=== PATIENT | male | born 1970 | race Caucasian/White ===

== ENCOUNTER 2023-04-28 08:07 | Outpatient (OUT) | payer OTHER, SELFPAY ==
[2023-04-28 08:40] LABS: Basophils Percent Auto 0.7 % (0.2-2.0); Eosinophils Absolute Auto 0.3 10^3/uL (0.0-0.7); Eosinophils Percent Auto 5.2 % (0.9-7.0); Hematocrit 47.2 % (42.0-54.0); Hemoglobin 15.5 g/dL (14.0-18.0); Immature Granulocytes Abs Auto 0.03 10^3/uL (0.00-0.03); Immature Granulocytes Pct Auto 0.5 % (0.0-0.5); Lymphocytes Absolute Auto 1.4 10^3/uL (1.2-3.8); Mean Corpuscular HGB Conc 32.8 g/dL (29.9-35.2); Mean Corpuscular Hemoglobin 30.7 pg (25.9-34.0); Mean Corpuscular Volume 93.5 fL (80.0-94.0); Monocytes Absolute Auto 0.6 10^3/uL (0.3-0.8); Monocytes Percent Auto 11.4 % (1.7-12.0); Neutrophils Absolute Auto 3.1 10^3/uL (1.4-6.5); Neutrophils Percent Auto 56.2 % (43.0-75.0); Platelet Count 203 10^3/uL (150-450); Red Blood Count 5.05 10^6/uL (4.70-6.10); Red Cell Distribution Width 12.8 % (11.0-15.0); White Blood Count 5.5 10^3/uL (4.0-11.0)
[2023-04-28 09:16] LABS: Alanine Aminotransferase 133 U/L (16-63); Albumin Globulin Ratio 1.1; Albumin Level 3.9 g/dL (3.4-5.0); Alkaline Phosphatase 56 U/L (46-116); Anion Gap 14.1; Aspartate Amino Transferase 68 U/L (15-37); BUN Creatinine Ratio 9.8; Bilirubin Total 0.8 mg/dL (0.2-1.0); Calcium 8.7 mg/dL (8.5-10.1); Chloride 102 mmol/L (98-107); Chol HDL Ratio 3.2; Cholesterol 186 mg/dL (<=200); Estimated GFR (African America >60 (>=60); Estimated GFR (Non-African Ame >60 (>=60); Globulin 3.7 g/dL; Glucose 82 mg/dL (74-106); HDL Cholesterol 58 mg/dL (40-60); Potassium 4.1 mmol/L (3.5-5.1); Sodium 139 mmol/L (136-145); Thyroid Stimulating Hormone 4.533 uIU/mL (0.358-3.740); Total Protein 7.6 g/dL (6.4-8.2); Triglycerides 75 mg/dL (<=150)
[2023-04-28 09:23] LABS: Prostate Specific Antigen Scrn 0.25 ng/mL (<=4.00)
[2023-04-29 04:07] LABS: Vitamin B12 638 pg/mL (232-1245)
== END 2023-04-28 08:08 | disposition home or self-care (01) ==
LOC: LAB 08:11
PROVIDERS: PCP Internal Medicine; Visit Provider Internal Medicine
DX: Z00.00 Encounter for general adult medical examination without abnormal findings (principal)
CPT/HCPCS: 36415; 80053; 80061; 82607; 84443; 85025; G0103

== ENCOUNTER 2023-07-02 07:48 | Outpatient (OUT) | payer OTHER, SELFPAY ==
--- OUTSIDE RECORDS SUMMARY | 2023-07-02 08:12 | XMS_ITS | CCD ---
Author Organization [facility] Care Team Providers Care Senior Marketing Coordinator Name Role Phone DO Kevin Peterson Primary Care Provider [phone] DO Vinay Urbina Attending Provider [phone] JOSE, DR HOLDEN Admitting Unavailable JOSE, DR HOLDEN Attending Unavailable JOSE, DR HOLDEN Primary Care Unavailable JOSE, DR HOLDEN Attending Unavailable JOSE, DR HOLDEN Consulting Unavailable JOSE, DR HOLDEN Primary Care Unavailable JOSE, DR HOLDEN Admitting Unavailable Kevin Peterson Unavailable Medications Current Medications Medication Drug Class(es) Dates Sig (Normalized) Sig (Original) Acetaminophen / oxyCODONE (1 source) Opioid Agonist Start: 11-19-2021 Percocet 5-325MG Percocet( 5-325MG Oral 1 every six hours, as needed ) Active -Hx Entry Oral every six hours, as needed for 0 Nov, Not-Taking 200 actuat albuterol 0.09 mg/actuat dry powder inhaler (3 sources) beta2-Adrenergic Agonist Start: 11-24-2021 take 1 puff(s) by inhalation every four hours as needed ProAir RespiClick 108 (90 Base) MCG/ACT 1 puff as needed Inhalation every 4 hrs for 30 days Nov, Active Start: 07-05-2021 take 1 puff(s) by in halation every six hours Albuterol Sulfate Active 2 PUFF INHALATION Q6H July 05, 2021 8:48am Start: 05-22-2021 take 1 puff(s) by in halation every six hours as needed Albuterol Sulfate HFA 108 (90 Base) MCG/ACT 1 puff as needed Inhalation every 6 hours as needed for 30 days May, Active ciprofloxacin 500 mg oral tablet (1 source) Quinolone Antimicrobial Start: 11-19-2021 Ciprofloxacin HCl 500MG Ciprofloxacin HCl( 500MG Oral 1 two times daily ) Active -Hx Entry Oral two times daily for 0 Nov, Not-Taking minocycline 100 mg oral capsule (2 sources) Tetracycline-class Drug Start: 05-22-2021 take 100 mg by mouth once daily Minocycline Active 100 MG PO Daily July 05, 2021 8:48am phentermine hydrochloride 37.5 mg oral tablet (1 source) Sympathomimetic Amine Anorectic Start: 07-05-2021 take 37.5 mg by mouth once daily Phentermine Active 37.5 MG PO Daily July 05, 2021 8:48am predniSONE 10 mg oral tablet (1 source) Start: 11-19-2021 Prednisone 10 MG PredniSONE( 10MG Oral as directed ) Active -Hx Entry Oral as directed for 0 Nov, Not-Taking tadalafil 20 mg oral tablet (1 source) Phosphodiesterase 5 Inhibitor Start: 01-07-2023 take 1 tablet by mouth once daily as needed Tadalafil 20 MG 1 tablet as needed Orally Once a day as needed for ED for 30 days Dec, Active Problems Active Problems Problem Classification Problem Date Documented Date Episodic/Chronic Asthma (1 source) Mild intermittent asthma; Translations: [Mild intermittent asthma, uncomplicated] Chronic Chronic obstructive pulmonary disease and bronchiectasis (1 source) Mucopurulent chronic bronchitis; Translations: [Mucopurulent chronic bronchitis] Chronic Other connective tissue disease (1 source) Plantar fascial fibromatosis Episodic Other inflammatory condition of skin (1 source) Rosacea; Translations: [Rosacea, unspecified] Chronic Other inflammatory condition of skin (1 source) Rosacea, unspecified Chronic Other male genital disorders (1 source) Erectile dysfunction co-occurrent and due to arterial insufficiency; Translations: [Erectile dysfunction due to arterial insufficiency] Chronic Other male genital disorders (1 source) Erectile dysfunction due to arterial insufficiency Chronic Other nervous system disorders (1 source) Meralgia paresthetica; Translations: [Meralgia paresthetica, left lower limb] Chronic Other nervous system disorders (1 source) Bilateral carpal tunnel syndrome; Translations: [Carpal tunnel syndrome, bilateral upper limbs] Chronic Other nervous system disorders (1 source) Meralgia paresthetica, left lower limb Chronic Other nervous system disorders (1 source) Carpal tunnel syndrome, bilateral upper limbs Chronic Other nutritional; endocrine; and metabolic disorders (1 source) Obesity caused by energy imbalance; Translations: [Other obesity due to excess calories] Chronic Other nutritional; endocrine; and metabolic disorders (1 source) Body mass index 30+ - obesity; Translations: [Body mass index (BMI) 38.0-38.9, adult] Chronic Other nutritional; endocrine; and metabolic disorders (1 source) Other obesity due to excess calories Chronic Other nutritional; endocrine; and metabolic disorders (1 source) Body mass index (BMI) 38.0-38.9, adult Chronic Other screening for suspected conditions (not mental disorders or infectious disease) (5 sources) Patient encounter status; Translations: [Encounter for screening for malignant neoplasm of colon] Onset: 06-06-2021 07-05-2021 Episodic Past or Other Problems Problem Classification Problem Date Documented Da te Episodic/Chronic Unclassified (1 source) Elevated transaminase level; Translations: [Elevated transaminase level] Results Test Name Value Interpretation Reference Range Facility COVID-19 Antigenon 2 COVID-19 Antigen Healthcare Worker?: N Reference Range: Negative Negative results, from patients with symptom onset beyond five days, should be treated as presumptive and confirmation with a molecular assay, if necessary, for patient management, may be performed. Negative results do not rule out COVID-19 and should not be used as the sole basis for treatment or patient management decisions, including infection control decisions. Negative results should be considered in the context of a patient's recent exposures, history and the presence of clinical signs and symptoms consistent with COVID-19. The [facility] SARS Antigen ROD does not differentiate between SARS-CoV and SARS-CoV-2. This test was developed and its performance characteristic determined by [facility] and validated at [facility]. This test has not been FDA cleared or approved. This test has been authorized by FDA under an Emergency Use Authorization (EUA). This test has been validated in accordance with the FDA's Guidance Document (Policy for Diagnostics Testing in Laboratories Certified to Perform High Complexity Testing under CLIA prior to Emergency Use Authorization for Coronavirus Disease-2019 during the Public Health Emergency) issued on May 19, 2019. This test is only authorized for the duration of time the declaration that circumstances exist justifying the authorization of the emergency use of in vitro diagnostic tests for detection of SARS-CoV-2 virus and/or diagnosis of COVID-19 infection under section 564(b)(1) of the Act, 21 U.S.C. 360bbb-3(b)(1), unless the authorization is terminated or revoked sooner. SARS-CoV+SARS-CoV-2 (COVID-19) Ag [Presence] in Respiratory specimen by Rapid immunoassay Negative for SARS Antigen by ROD PERFORMED BY: [place] [address] PATHOLOGIST CAD ENGINEER SAI DAVID M.D. Normal [facility] Comment on above: Performed By: #### C OVID-19 PRESTON, SOFIANEG #### [facility] [address] [place] [address] COVID-19 SOFIAOrdered By: Claudio Urbina on 07-03-2021 SARS-CoV+SARS-CoV-2 (COVID-19) Ag IA.rapid Ql (Resp) Negative Negative [facility] Comment on above: This is a duplicate [facility] SARS Antigen (ROD) result to be used for statistical tracking purpose only. No Panel InformationOrdered By: Vinay Urbina on 07-03-2021 SARS Antigen (LFIA) [facility] Ag Negativeon 07-04-19 22 [facility] Ag Negative Negative Normal Negative [facility] Comment on above: Result Comment: This is a duplicate [facility] SARS Antigen (ROD) result to be used for statistical tracking purpose only. PERFORMED BY: [place] [address] PATHOLOGIST CAD ENGINEER SAI DAVID M.D. Performed By: #### C OVID-19 PRESTON, SOFIANEG #### [facility] [address] [place], [place] [id number] [facility] CBC AUTO DIFFon 06-05-2021 BASO # 0.0 103/ul Normal 0.0-0.1 [facility] Comment on above: Performed By: #### C BC #### [facility] [address] [address] [address] Fabio Ureña Basophils/100 WBC (Bld) 0.6 % Normal 0.2-2.0 [facility] Comment on above: Performed By: #### C BC #### [facility] [address] [place] [address] Dr. Fabio Ureña EO # 0.3 103/ul Normal 0.0-0.7 [facility] Comment on above: Performed By: #### C BC #### [facility] [address] [place] [address] Dr. Fabio Ureña Eosinophils/100 WBC (Bld) 5.6 % Normal 0.9-7.0 [facility] Comment on above: Performed By: #### C BC #### [facility] [address] [place] [address] Dr. Fabio Ureña Erythrocyte distribution width (RBC) [Ratio] 13.2 % Normal 11.0-15.0 [facility] Comment on above: Performed By: #### C BC #### [facility] [address] [place] [address] Dr. Fabio Ureña Hematocrit (Bld) [Volume fraction] 47.3 % Normal 42.0-54.0 [facility] Comment on above: Performed By: #### C BC #### [facility] [address] [place] [address] Dr. Fabio Ureña Hemoglobin (Bld) [Mass/Vol] 15.5 g/dL Normal 14.0-18.0 [facility] Comment on above: Performed By: #### C BC #### [facility] [address] [place] [address] Dr. Fabio Ureña IG # 0.02 10e3/ul Normal 0.00-0.03 [facility] Comment on above: Performed By: #### C BC #### [facility] [address] [place] [address] Dr. Fabio Ureña IG % 0.4 % Normal 0.0-0.5 [facility] Comment on above: Performed By: #### C BC #### [facility] [address] [place] [address] Dr. Fabio Ureña LYMPH # 1.4 103/ul Normal 1.2-3.8 [facility] Comment on above: Performed By: #### C BC #### [facility] [address] [place] [address] Dr. Fabio Ureña Lymphocytes/100 WBC (Bld) 28.8 % Normal 20.5-60.0 [facility] Comment on above: Performed By: #### C BC #### [facility] [address] [place] [address] Dr. Fabio Ureña MANUAL DIFF REQ NO Normal [facility] Comment on above: Performed By: #### C BC #### [facility] [address] [place] [address] Dr. Fabio Ureña MCH (RBC) [Entitic mass] 30.2 pg Normal 25.9-34.0 [facility] Comment on above: Performed By: #### C BC #### [facility] [address] [place] [address] Dr. Fabio Ureña MCHC (RBC) [Mass/Vol] 32.8 g/dL Normal 29.9-35.2 [facility] Comment on above: Performed By: #### C BC #### [facility] [address] [place] [address] Dr. Fabio Ureña MCV (RBC) [Entitic vol] 92.2 fL Normal 80.0-94.0 [facility] Comment on above: Performed By: #### C BC #### [facility] [address] [place] [address] Dr. Fabio Ureña MONO # 0.6 103/ul Normal 0.3-0.8 [facility] Comment on above: Performed By: #### C BC #### [facility] [address] [place] [address] Dr. Fabio Ureña Monocytes/100 WBC (Bld) 12.8 % Critically high 1.7-12. 0 [facility] Comment on above: Performed By: #### C BC #### [facility] [address] [place] [address] Dr. Fabio Ureña NEUT # 2.6 103/ul Normal 1.4-6.5 [facility] Comment on above: Performed By: #### C BC #### [facility] [address] [place] [address] Dr. Fabio Ureña Neutrophils/100 WBC (Bld) 51.8 % Normal 43.0-75.0 [facility] Comment on above: Performed By: #### C BC #### [facility] [address] [place] [address] Dr. Fabio Ureña Platelet mean volume (Bld) [Entitic vol] 10.7 fL Normal 9.5-13.5 [facility] Comment on above: Performed By: #### C BC #### [facility] [address] [place] [address] Dr. Fabio Ureña PLT 216 103/ul Normal 150-450 [facility] Comment on above: Performed By: #### C BC #### [facility] [address] [place] [address] Dr. Fabio Ureña RBC 5.13 106/ul Normal 4.70-6.10 [facility] Comment on above: Performed By: #### C BC #### [facility] [address] [place] [address] Dr. Fabio Ureña WBC 5.0 103/ul Normal 4.0-11.0 [facility] Comment on above: Performed By: #### C BC #### [facility] [address] [place] [address] Dr. Fabio Ureña LIPID PROFILEon 06-05-2021 CHOL-HDL RATIO NORM SEE BELOW Normal [facility] Comment on above: Result Comment: 3.3 - 4.4 LOW RISK 4.4 - 7.1 AVERAGE RISK 7.1 - 11.0 MODERATE RISK >11.0 HIGH RISK Performed By: #### C MP, LIPID #### [facility] [address] [place] [address] Dr. Fabio Ureña Cholesterol [Mass/Vol] 169 mg/dL Normal <=[address] [facility] Comment on above: Performed By: #### C MP, LIPID #### [facility] [address] [place] [address] Dr. Fabio Ureña Cholesterol in HDL [Mass/Vol] 44 mg/dL Normal 40-60 [facility] Comment on above: Performed By: #### C MP, LIPID #### [facility] [address] [address] [address] Fabio Ureña Cholesterol in LDL [Mass/Vol] 109.0 mg/dL Normal [facility] Comment on above: Performed By: #### C MP, LIPID #### [facility] [address] [address] [address] Fabio Ureña Cholesterol.total/Noa sterol in HDL [Mass ratio] 3.8 {ratio} Normal [facility] Comment on above: Performed By: #### C MP, LIPID #### [facility] [address] [address] [address] Fabio Ureña HDL NORMAL > or = 60 mg/dl - LOW CARDIOVASCULAR RISK <40 mg/dl - HIGH CARDIOVASCULAR RISK Normal [facility] Comment on above: Performed By: #### C MP, LIPID #### [facility] [address] [place] [address] Dr. Fabio Ureña LDL CALC NORMAL SEE BELOW Normal [facility] Comment on above: Result Comment: <100 mg/dl OPTIMAL 100 - 129 mg/dl NEAR OR ABOVE OPTIMAL 130 - 159 mg/dl BORDERLINE HIGH 160 - 189 mg/dl HIGH >190 mg/dl VERY HIGH Performed By: #### C MP, LIPID #### [facility] [address] [place] [address] Dr. Fabio Ureña Triglyceride [Mass/Vol] 80 mg/dL Normal <=150 T [facility] Comment on above: Performed By: #### C MP, LIPID #### [facility] [address] [address] [address] Fabio Ureña VLDL CALC 16.0 mg/dL Normal [facility] Comment on above: Performed By: #### C MP, LIPID #### [facility] [address] [address] [address] Fabio Ureña PROF 14(COMP METB)on 022 Albumin [Mass/Vol] 4.3 g/dL Normal 3.4-5.0 [facility] Comment on above: Performed By: #### C MP, LIPID #### [facility] [address] [place] [address] Dr. Fabio Ureña Albumin/Globulin [Mass ratio] 1.3 {ratio} Normal [facility] Comment on above: Performed By: #### C MP, LIPID #### [facility] [address] [place] [address] Dr. Fabio Ureña ALP [Catalytic activity/Vol] 66 U/L Normal 46-116 [facility] Comment on above: Performed By: #### C MP, LIPID #### [facility] [address] [address] [address] Fabio Ureña ALT [Catalytic activity/Vol] 79 U/L Critically high 16-63 [facility] Comment on above: Performed By: #### C MP, LIPID #### [facility] [address] [place] [address] Dr. Fabio Ureña Anion gap [Moles/Vol] 13.1 mmol/L Normal [facility] Comment on above: Performed By: #### C MP, LIPID #### [facility] [address] [address] [address] Fabio Ureña AST [Catalytic activity/Vol] 41 U/L Critically high 15-37 [facility] Comment on above: Performed By: #### C MP, LIPID #### [facility] [address] [place] [address] Dr. Fabio Ureña Bilirubin [Mass/Vol] 0.4 mg/dL Normal 0.2-1.3 [facility] Comment on above: Performed By: #### C MP, LIPID #### [facility] [address] [address] [address] Fabio Ureña Calcium [Mass/Vol] 9.0 mg/dL Normal 8.5-10.1 [facility] Comment on above: Performed By: #### C MP, LIPID #### [facility] [address] [place] [address] Dr. Fabio Ureña Chloride [Moles/Vol] 104 mmol/L Normal 98-107 [facility] Comment on above: Performed By: #### C MP, LIPID #### [facility] [address] [place] [address] Dr. Fabio Ureña CO2 [Moles/Vol] 28.3 mmol/L Normal 22.0-30.0 [facility] Comment on above: Performed By: #### C MP, LIPID #### [facility] [address] [place] [address] Dr. Fabio Ureña Creatinine [Mass/Vol] 0.90 mg/dL Normal 0.66-1.25 [facility] Comment on above: Performed By: #### C MP, LIPID #### [facility] [address] [address] [address] Fabio Ureña EGFR-AF IRAQI >60 Normal >=60 [facility] Comment on above: Performed By: #### C MP, LIPID #### [facility] [address] [place] [address] Dr. Fabio Ureña EGFR-NON AF IRAQI >60 Normal >=60 [facility] Comment on above: Performed By: #### C MP, LIPID #### [facility] [address] [place] [address] Dr. Fabio Ureña Globulin (S) [Mass/Vol] 3.3 g/dL Normal [facility] Comment on above: Performed By: #### C MP, LIPID #### [facility] [address] [place] [address] Dr. Fabio Ureña Glucose [Mass/Vol] 90 mg/dL Normal 74-106 [facility] Comment on above: Performed By: #### C MP, LIPID #### [facility] [address] [place] [address] Dr. Fabio Ureña Potassium [Moles/Vol] 4.4 mmol/L Normal 3.4-5.0 [facility] Comment on above: Performed By: #### C MP, LIPID #### [facility] [address] [place] [address] Dr. Fabio Ureña Protein [Mass/Vol] 7.6 g/dL Normal 6.1-8.2 [facility] Comment on above: Performed By: #### C MP, LIPID #### [facility] [address] [place] [address] Dr. Fabio Ureña Sodium [Moles/Vol] 141 mmol/L Normal 137-145 [facility] Comment on above: Performed By: #### C MP, LIPID #### [facility] [address] [address] [address] Fabio Ureña Urea nitrogen [Mass/Vol] 15.0 mg/dL Normal 7.0-18.0 [facility] Comment on above: Performed By: #### C MP, LIPID #### [facility] [address] [place], [place] [address] Dr. aFbio Ureña Urea nitrogen/Creatinine [Mass ratio] 16.7 mg/mg Normal [facility] Comment on above: Performed By: #### C MP, LIPID #### [facility] [address] [address] [address] Fabio Ureña Vital Signs Date Time Vital Sign Value Performing Clinician Facility 01-07-2023 14:00-0500 Body height 177.8 cm Kevin BeanJockey Other [facility] Other 01-07-2023 14:00-0500 Body mass index (BMI) [Ratio] 38.31 kg/m2 Kevin Ball Other [facility] Other 01-07-2023 14:00-0500 Body weight 121.11 kg Kevin Ball Other [facility] Other 01-07-2023 14:00-0500 Diastolic blood pressure 86 mm[Hg] Kevin Ball Other [facility] Other 01-07-2023 14:00-0500 Respiratory rate 12 /min Kevin Ball Other [facility] Other 01-07-2023 14:00-0500 Systolic blood pressure 124 mm[Hg] Kevin Ball Other [facility] Other 07-05-2021 11:32-0400 Diastolic blood pressure 70 mm[Hg] DO Kevin Ball Work Phone: [facility] 07-05-2021 11:32-0400 Heart rate 70 /min DO Kevin Ball Work Phone: [facility] 07-05-2021 11:32-0400 Respiratory rate 20 /min DO Kevin Ball Work Phone: [facility] 07-05-2021 11:32-0400 SaO2% (BldA) [Mass fraction] 97 % DO Kevin Peterson Work Phone: [facility] 07-05-2021 11:32-0400 Systolic blood pressure 106 mm[Hg] DO Kevin Peterson Work Phone: [facility] 07-05-2021 11:02-0400 Inhaled oxygen flow rate 6 L/min DO Kevin Peterson Work Phone: [facility] 07-05-2021 09:12-0400 Body height 177.8 cm DO Kevin Peterson Work Phone: [facility] 07-05-2021 09:12-0400 Body mass index (BMI) [Ratio] 32.4 kg/m2 DO Kevin Peterson Work Phone: [facility] 07-05-2021 09:12-0400 Body temperature 98.2 [degF] DO Kevin Peterson Work Phone: [facility] 07-05-2021 09:12-0400 Body weight 102.51 kg DO Kevin Peterson Work Phone: [facility] Encounters Encounter Date Encounter Type Care Provider Facility Start: 01-07-2023 End: 01-07-2023 ambulatory Kevin Jose Other [facility] Other Start: 01-07-2023 Encounter for genera l adult medical examination without abnormal findings Kevin Peterson [facility] Start: 01-07-2023 Periodic preventive med est patient 40-64yrs Kevin Peterson [facility] Start: 09-13-[address] KEVIN PETERSON Facili ty:[facility] Start: 07-05-2021 End: 07-05-2021 Admission to same day surgery center DO Kevin Peterson Work Phone: [facility] Start: 07-03-2021 End: 07-03-2021 Patient encounter procedure DO Kevin Peterson Work Phone: [facility] Start: 06-06-2021 Encounter for genera l adult medical examination without abnormal findings DR KEVIN PETERSON [facility] Start: 06-05-2021 End: 06-06-[address] KEVIN PETERSON Facility:[facility] Start: 06-05-2021 End: 06-06-2021 Encounter for general adult medical examination without abnormal findings DR KEVIN PETERSON Facility:[facility] Procedures Date Procedure Procedure Detail Performing Clinician Start: 07-05-2021 Screening colonoscopy D O Kevin Jose Work Phone: Start: 07-03-2021 SARS Antigen (LFIA) DO Kevin Jose Work Phone: Start: 06-05-[address] MOROCHO [facility] Comment on above: Performed By: #### P [facility] #### [facility] [address] [place] [address] Dr. Fabio Ureña Plan of Treatment Date Care Activity Detail Author Patient Education Diverticulosis [facility] Work Phone: Immunizations Immunization Date Immunization Notes Care Provider Chung fraga 01-23-2021 COVID-19 mRNA, Comirnaty (Pfizer) DO Kevin Peterson Work Phone: [facility] 06-02-2020 COVID-19 mRNA, Comirnaty (Pfizer) DO Kevin Peterson Work Phone: [facility] 05-11-2020 COVID-19 mRNA, Comirnaty (Pfizer) DO Kevin Peterson Work Phone: [facility] Payers Date Payer Category Payer Unknown [id number] 1970 Unknown [id number] 1958 Private Health Insurance [id number] 1958 Self-pay [id number] Private Health Insurance [facility] [id number] Self-pay Self Pay [id number] Social History Date Type Detail Facility Tobacco smoking status PRIS Unknown if ever smoked [facility] Work Phone: Start: 1970 Sex Assigned At Male F [facility] Start: 07-05-2021 Tobacco smoking status NHIS Ex-smoker (finding) [facility] Sex Assigned At Sex Assigned At [facility] [employer] Other Goals Date Patient Goal Desired Activity /State Evaluation note 01-07-2023 Note Date & Type Note Facility 01-07-2023 Evaluation note Encounter Date Diagnosis Assessment Notes Dec, Wellness examination (ICD-10 - Z00.00) Healthy diet and exercise. Reviewed age-appropriat e preventive testing recommended. Dec, Meralgia paresthetica of left side (ICD-10 - G57.12) Weight loss encouraged Offered referral to Pain Clinic Offered Gabapentin Dec, Plantar fasciitis, left (ICD-10 - M72.2) Exercises give to patient Ice/heat and supportive footwear. Podiatry if no improvement Dec, Bilateral carpal tunnel syndrome (ICD-10 - G56.03) Night time splinting. DIscussed referral for EMG/NCS and surgery Dec, Other obesity due to excess calories (ICD-10 - E66.09) This patient has been instructed on a low-fat, high-fiber diet. They are instructed to reduce calories, portion sizes and snacks. It is recommended that they exercise for 30 minutes, 3-5 times weekly. Dec, Body mass index [BMI] 38.0-38.9, adult (ICD-10 - Z68.38) Dec, Erectile dysfunction due to arterial insufficiency (ICD-10 - N52.01) Requesting Cialis. Dec, Rosacea (ICD-10 - L71.9) Avoid sun and spicey foods. Continue Minocin Dec, Screening PSA (prostate specific antigen) (ICD-10 - Z12.5) Yearly FAREED and PSA [facility] Other Procedure note 07-05-2021 Note Date & Type Note Facility 07-05-2021 Procedure note [facility] Evaluation note Note Date & Type Note Facility Evaluation note No assessment information availa ble [facility] Work Phone: Evaluation note Note Date & Type Note Facility Evaluation note Diagnosis Onset Date Screening for colorectal cancer acute [facility] Work Phone: History and physical note Note Date & Type Note Facility History and physical note Note Date/Time July 05, 2021 10:43am [facility] [address] [place] [address] Gastroenterology H&P Signed Patient: Pepito Russell MR#: [id number] : 1970 Acct:[id number] Age/Sex: 51 / M Adm Date: 2 Loc: Room: Type: [facility] Attending Dr: Vinay Urbina DO Copies to: DO Vinay Richmond Jr, ~ Date of Service: 07/05/2021 Gastroenterology HPI History of Present Illness HPI: Mr. Russell is a 51 year old male for colorectal cancer screening, negative symptoms, negative family history, never had colonoscopy before. Review of Systems Review of Systems All other systems reviewed & are negative unless noted below or in HPI PMFSH Vaccinated for COVID-19?: Yes Medical History CHANTALE (obstructive sleep apnea) Plantar wart Surgical History No significant past surgical history [place] teeth extracted Family History Brother Diabetes Father Heart disease Social History Smoking Status: Former smoker Substance Use Type: None Substance Abuse Comment: uses chewing tobacco Meds Home and Active Medications Home and Active Medications: Home Medications albuterol sulfate 90 mcg/actuation aerosol inhaler 2 puff INHALATION Q6H PRN 07/05/21 [History Confirmed 07/05/21] minocycline 100 mg capsule 100 mg PO DAILY 07/05/21 [History Confirmed 07/05/21] phentermine 37.5 mg tablet 37.5 mg PO DAILY 07/05/21 [History Confirmed 07/05/21] Active Medications Sodium Chloride (0.9% Sodium Chloride 1,000 Ml) 1,000 mls @ 20 mls/hr IV .Q24H RADHA Stop: 07/05/22 08:59 Last Admin: 07/05/21 09:11 Dose: 20 mls/hr Documented by: Sodium Chloride (Sodium Chloride 0.9 % 10 Ml Syringe) 0 ml IV-PUSH PRN PRN PRN Reason: Flush Stop: 07/05/22 08:51 Exam Physical Exam Vital Signs: Temp Pulse Resp BP Pulse Ox 98.2 F 82 20 122/82 96 07/05/21 09:12 07/05/21 09:12 07/05/21 09:12 07/05/21 09:12 07/05/21 09:12 Const General: no acute distress Orientation: alert and oriented x3 Resp Effort & Inspection: normal respiratory effort Auscultation: clear to auscultation bilaterally Cardio Rate: regular rate Rhythm: regular rhythm GI Palpation: soft and nontender Auscultation: normal bowel sounds Extrem General: no edema A&P - Gastroenterology Assessment/Plan (1) Screening for colorectal cancer: Code(s): Z12.11 - Encounter for screening for malignant neoplasm of colon; Z12.12 - Encounter for screening for malignant neoplasm of rectum Status: Acute Plan colonoscopy for evaluation Documented By: Vinay Urbina Jr, 07/05/21 104 0 Signed By: <Electronically signed by Vinay Urbina Jr, DO> 07/05/21 1046 [facility] Work Phone: History general Narrative - Reported Note Date & Type Note Facility History general Narrative - Reported Type Medical History Elevated transaminase level Medical History Rosacea Medical History Chronic bronchitis, mucopurulent Medical History Intermittent asthma without complication Surgical History COLONOSCOPY 2021 Hospitalization History SEE SURGICAL HX [facility] Other Chief Complaint and Reason for Visit Chief Complaint Screening Chief Complaint Screening Screening Reason for Visit Screening for colore ctal cancer Advance Directives Advance Directive Response Recorded Date/ Time Advance Directives No July 01 2 9:47am Family History Relationship Condition Age at Onset Recorded Date/T genevieve brother Diabetes mellitus Unknown father Heart disease Unknown Summary Purpose Additional Source Comments Care Teams (unrecognized sec tion and content) Team Status: Inactive Member Role Status Dates Kevin Peterson DO Primary Care Provider Active Vinay Urbina , DO Attending Provider Active Team Status: Active Member Role Status Dates Kevin Peterson , Primary Care Provider Active Goals (unrecognized section and content) Goals may be documented in a n alternate sectionNo Information (unrecognized sect ion and content) No Status Records FoundNo Status Records Found INFORMATION SOURCE (unrecogn ized section and content) DATE CREATED AUTHOR 07/20/2021 [facility] DATE CREATED AUTHOR 'S ORGANIZ ATION 09/17/2021 [facility] REASON FOR VISIT (unrecogniz ed section and content) WELLNESS FOR RECORDS PERTAINING TO PATIENTS WHO ARE OR HAVE BEEN ENROLLED IN A CHEMICAL DEPENDENCY/SUBSTANCEABUSE PROGRAM, SOME INFORMATION MAY BE OMITTED. This clinical summary was aggregated from multiple sources. Caution should be exercised in using it in the provision of clinical care. This summary normalizes information from multiple sources, and as a consequence, information in this document may materially change the coding, format and clinical context of patient data. In addition, data may be omitted in some cases. CLINICAL DECISIONS SHOULD BE BASED ON THE PRIMARY CLINICAL RECORDS. [facility]. provides no warranty or guarantee of the accuracy or completeness of information in this document.
[2023-07-02 08:42] LABS: Alanine Aminotransferase 70 U/L (16-63); Albumin Globulin Ratio 1.1; Alkaline Phosphatase 70 U/L (46-116); Aspartate Amino Transferase 41 U/L (15-37); Bilirubin Direct 0.2 mg/dL (0.0-0.2); Bilirubin Total 0.9 mg/dL (0.2-1.0); Globulin 3.5 g/dL; Thyroid Stimulating Hormone 3.014 uIU/mL (0.358-3.740); Total Protein 7.5 g/dL (6.4-8.2)
[2023-07-02 08:59] LABS: Free T4 0.85 ng/dL (0.76-1.46)
[2023-07-03 08:11] LABS: Triiodothyronine (T3) 124 ng/dL (71-180)
== END 2023-07-02 07:49 | disposition home or self-care (01) ==
LOC: LAB 07:49
PROVIDERS: PCP Internal Medicine; Visit Provider Internal Medicine
DX: R79.89 Other specified abnormal findings of blood chemistry (principal); E03.8 Other specified hypothyroidism; R74.01 Elevation of levels of liver transaminase levels
CPT/HCPCS: 36415; 80076; 84439; 84443; 84480